=== PATIENT | female | born 1945 | race Two or more races ===

== ENCOUNTER 2024-12-16 13:37 | Emergency (ER) | payer OTHER ==
[~2024-12-16] VITALS: Ht 157.5 cm; Wt 83.5 kg
[2024-12-16] MEDS ORDERED: ARBLI10 MG/1 ML PO (13:49)
[2024-12-16] MEDS ORDERED: LEVOTHYROXINE25 MCG PO (13:50)
[2024-12-16] MEDS ORDERED: AMLODIPINE-OLM1 EAC2 PO (13:50)
[2024-12-16 16:40] LABS: URINE APPEARANCE Clear; URINE BILIRRUBIN Negative (NEGATIVE); URINE BLOOD Negative; URINE COLOR Yellow; URINE GLUCOSE Negative (NEGATIVE); URINE KETONE Negative (NEGATIVE); URINE LEUKOCYTE Negative; URINE NITRATE Negative; URINE PROTEIN Negative (NEGATIVE); URINE UROBILINOGEN 0.2 E.U./dl
[2024-12-16 16:43] LABS: URINE BACTERIA 37.1 uL (0.0-1933); URINE EPITHELIAL CELLS 1.5 uL (0.0-38.8)
[2024-12-16 16:44] LABS: URINE CAST 0.00 uL (0.0-1.40); URINE RBC 0.2 uL (0.0-20.8); URINE WBC 0.7 uL (0.0-23.2)
[2024-12-16] MEDS ORDERED: IBUPROFEN800 MG PO (19:09)
== END 2024-12-16 19:36 | disposition home or self-care (01) ==
LOC: ER 14:06
PROVIDERS: General Practice
DX: R10.2 Pelvic and perineal pain (principal); I10 Essential (primary) hypertension; E03.8 Other specified hypothyroidism